=== PATIENT | male | born 1990 | race Two or more races ===

== ENCOUNTER 2023-08-18 13:57 | Emergency (ER) | payer OTHER ==
[~2023-08-18] VITALS: Ht 170.2 cm; Wt 86.2 kg
[2023-08-18] MEDS ORDERED: CETIRIZINE HCL 5 MG/5 ML ML PO ONE (17:00)
[2023-08-18] MEDS ORDERED: KETOROLAC TROMETHAMINE 60 MG VIAL IM ONE (17:00)
[2023-08-18] MEDS ORDERED: ZYRTEC10 MG PO (19:08)
[2023-08-18] MEDS ORDERED: AYR SALINE50 ML NASAL (19:08)
== END 2023-08-18 19:23 | disposition home or self-care (01) ==
LOC: ER 13:58
DX: U07.1 COVID-19 (principal); R53.81 Other malaise